=== PATIENT | female | born 1940 | race African-American/Black ===

== ENCOUNTER 2021-05-21 04:05 | Inpatient (IN) | payer MEDICARE, MEDICAID ==
[~2021-05-21] VITALS: Ht 165.1 cm; Wt 63.7 kg
[2021-05-21 04:50] LABS: HEMATOCRIT 33.9 % (36.0-48.0); HEMOGLOBIN 11.1 g/dL (12.0-16.0); MEAN CORPUSCULAR HEMOGLOBIN 26.8 pg (28.0-32.0); PLATELET 225 x1000/uL (130-400); RED BLOOD CELL COUNT 4.14 mill/uL (4.2-5.4); RED CELL DISTRIBUTION WIDTH 19.4 % (11.6-14.6)
[2021-05-21 04:54] LABS: CHLORIDE 113 mEq/L (98-107)
[2021-05-21] MEDS ORDERED: CLONIDINE 0.2MG TABLET PO PRN (11:45)
[2021-05-22] VITALS (7 sets, daily range): BP systolic 106–166; BP diastolic 55–80
[2021-05-22 09:43] LABS: BASOPHILS % 0.2 % (0.0-2.0); EOSINOPHILS % 0.2 % (0.0-5.0); HEMATOCRIT. 31.5 % (36.0-48.0); HEMOGLOBIN. 10.1 g/dL (12.0-16.0); LYMPHOCYTES % 13.9 % (20.0-50.0); MEAN CORPUSCULAR HEMOGLOBIN 26.9 pg (28.0-32.0); MEAN CORPUSCULAR VOLUME 83.6 fL (81.0-99.0); MEAN PLATELET VOLUME 8.9 fl (7.4-10.4); MONOCYTES % 14.7 % (2.0-8.0); PLATELET 202 x1000/uL (130-400); RED BLOOD CELL COUNT 3.76 mill/uL (4.2-5.4); RED CELL DISTRIBUTION WIDTH 19.2 % (11.6-14.6)
[2021-05-22] MEDS: ASPIRIN 81MG TABLET PO SCH (09:49)
[2021-05-22 09:54] LABS: CHLORIDE 116 mEq/L (98-107)
[2021-05-22 10:06] LABS: LDL CHOLESTEROL 77 mg/dL (5-100)
[2021-05-22 10:07] LABS: HDL CHOLESTEROL 47 mg/dL (40-59)
[2021-05-22] MEDS ORDERED: ONDANSETRON HCL 4MG/2ML INJ IV PRN (10:45)
[2021-05-22] MEDS: AMLODIPINE 10MG TABLET PO SCH (11:24)
[2021-05-22] MEDS: ACETAMINOPHEN 325MG TABLET PO PRN (16:50)
[2021-05-22] MEDS ORDERED: LORAZEPAM 2MG/ML CPJ IV PRN (20:00)
[2021-05-23] VITALS: BP 150/73
[2021-05-23 04:00] VITALS: BP 145/68
[2021-05-23 08:00] VITALS: BP 146/74
[2021-05-23] MEDS: ASPIRIN 81MG TABLET PO SCH (08:46)
[2021-05-23] MEDS: AMLODIPINE 10MG TABLET PO SCH (08:48)
[2021-05-23] MEDS: ACETAMINOPHEN 325MG TABLET PO PRN ×2 (08:51→21:39)
[2021-05-23 12:00] VITALS: BP 120/55
[2021-05-23 16:00] VITALS: BP 134/66
[2021-05-23 20:00] VITALS: BP 140/66
[2021-05-24] VITALS: BP 116/56
[2021-05-24 04:00] VITALS: BP 149/76
[2021-05-24] MEDS: ACETAMINOPHEN 325MG TABLET PO PRN (05:22)
[2021-05-24 08:00] VITALS: BP 149/65
[2021-05-24] MEDS: ASPIRIN 81MG TABLET PO SCH (08:51)
[2021-05-24] MEDS: AMLODIPINE 10MG TABLET PO SCH (08:51)
[2021-05-24 12:58] VITALS: BP 119/59
== END 2021-05-24 15:59 | DRG 641 ==
LOC: EDBD 04:05 → ER 04:05 → MICUSO 05:47 → 6EST 05-22 02:12
PROVIDERS: ADMIT Internal Medicine; ATTEND Internal Medicine
DX: R62.7 Adult failure to thrive (principal); E87.0 Hyperosmolality and hypernatremia; E44.0 Moderate protein-calorie malnutrition; D64.9 Anemia, unspecified; E87.8 Other disorders of electrolyte and fluid balance, not elsewhere classified; I10 Essential (primary) hypertension; Z68.23 Body mass index [BMI] 23.0-23.9, adult
CPT/HCPCS: 36415; 80048; 80053; 80061; 83036; 85025; 85027; 97161; 99285